=== PATIENT | female | born 1995 | race African-American/Black ===

== ENCOUNTER 2017-05-19 07:35 | Emergency (ER) | payer SELFPAY ==
[~2017-05-19] VITALS: Ht 154.9 cm; Wt 51.4 kg
[2017-05-19 09:22] LABS: MCHC 33.5 G/DL (30.0-36.0); MCV 86.6 FL (83-99); MEAN PLAT.VOLUME 9.9 uM^3 (9.5-12.4); PLATELET COUNT 292 K/uL (156-360); RBC DIS.WIDTH-CV 13.6 % (11.8-14.6); RBC DIS.WIDTH-SD 42.6 % (39-53); RED BLOOD COUNT 4.62 M/uL (3.80-5.20); WHITE BLOOD COUNT 3.9 K/uL (4.1-10.2)
[2017-05-19 10:05] LABS: CHLORIDE 104 mEq/L (99-109); POTASSIUM 4.5 mEq/L (3.7-5.4); SODIUM 137 mEq/L (136-147)
[2017-05-19 10:07] LABS: GLUCOSE 277 mg/dL (70-99)
[2017-05-19 10:09] LABS: ANION GAP 11 MEQ/L (2-14)
[2017-05-19 10:11] LABS: GFR ESTIMATE (CALCULATED) > 59 mL/min/; QUANTITATIVE HCG < 4.0 MIU/ML
[2017-05-19 10:12] LABS: UREA NITROGEN (BUN) 11 mg/dL (9-23)
[2017-05-19 10:40] LABS: BASOPHIL COUNT 0.1 K/uL (0-0.1); EOSINOPHIL (%) 2.3 % (0-5); EOSINOPHIL COUNT 0.1 K/uL (0-0.3); IMMATURE GRANULOCYTE (%) 0.3 % (0.0-0.7); INSTRUMENT ABS NEUTROPHIL CT 1.8 K/uL; LYMPHOCYTE COUNT 1.6 K/uL (1.0-2.8); MONOCYTE (%) 7.8 % (3-12); MONOCYTE COUNT 0.3 K/uL (0-0.8); NEUTROPHIL (%) 47.6 % (45-76); NEUTROPHIL COUNT 1.8 K/uL (1.8-6.4)
[2017-05-19 11:49] VITALS: BP 121/80
== END 2017-05-19 11:57 | disposition home or self-care (01) ==
LOC: EME 07:35
PROVIDERS: Emergency Medicine
DX: N92.6 Irregular menstruation, unspecified (principal); F17.200 Nicotine dependence, unspecified, uncomplicated
CPT/HCPCS: 80048; 84702; 85025; 99281; 99284